=== PATIENT | female | born 2000 | race Caucasian/White ===

== ENCOUNTER 2018-11-08 23:48 | Emergency (ER) | payer OTHER ==
[2018-11-09 02:13] VITALS: BP 114/63
--- NOTE | 2018-11-09 02:18 | ED ---
Substance Abuse/Use - HPI Summary HPI Summary: Patient is a 17-year-old female presenting to the ED via ambulance with boyfriend with EtOH use. With an appetite states they were out drinking when patient began to vomit. He states this is not normal for her and became concerned. He told his friends who were able to call the ambulance. She had approximately 2-3 episodes of emesis and was difficult to arouse. On arrival into the ED, she is easy to arouse and is able to communicate. Denies any drug use on this date. - History Of Current Complaint Chief Complaint: EDSubstanceAbuse Stated Complaint: ETOH Time Seen by Provider: 11/09/18 00:17 Hx Obtained From: Patient ?: No Ingestion History: Type/Name Of Drug - Alcohol Overdose Characteristics: Oral Timing Of Abuse: Binge Use Severity Initially: Moderate Severity Currently: Moderate Aggravating Factor(s): Nothing Alleviating Factor(s): Nothing Associated Signs And Symptoms: Negative - Allergies/Home Medications Allergies/Adverse Reactions: Allergies Allergy/AdvReac Type Severity Reaction Status Date / Time LACTOSE INTOLERANCE Allergy GI Upset Uncoded 03/06/18 14:46 PMH/Surg Hx/FS Hx/Imm Hx Previously Healthy: Yes Endocrine/Hematology History: Denies: Hx Diabetes Cardiovascular History: Denies: Hx Hypertension, Hx Pacemaker/ICD Respiratory History: Reports: Hx Asthma History: Denies: Hx Renal Disease Musculoskeletal History: Reports: Hx Back Problems Sensory History: Denies: Hx Hearing Aid Neurological History: Denies: Other Neuro Impairments/Disorders - PAIN CLINIC PT Psychiatric History: Denies: Hx Panic Disorder - Surgical History Surgery Procedure, Year, and Place: wisdom teeth 2017 - Immunization History Hx Pertussis Vaccination: No Immunizations Up to Date: Yes Infectious Disease History: No Infectious Disease History: Reports: Hx of Known/Suspected MRSA Denies: Traveled Outside the [place] in Last 30 Days - Social History Occupation: Unemployed, Student Lives: Dormitory/Roommates Alcohol Use: Occasionally Hx Substance Use: No Substance Use Type: Reports: None Hx Tobacco Use: No Smoking Status (MU): Never Smoked Tobacco Review of Systems Constitutional: Negative Negative: Fever, Chills, Fatigue, Skin Diaphoresis Negative: Epistaxis, Dental Pain Negative: Palpitations, Chest Pain Negative: Shortness Of Breath, Cough Positive: Vomiting, Nausea Genitourinary: Negative Positive: no symptoms reported, see HPI Negative: Rash, Bruising Neurological: Negative All Other Systems Reviewed And Are Negative: Yes Physical Exam Triage Information Reviewed: Yes Vital Signs On Initial Exam: Initial Vitals Temp Pulse Resp BP Pulse Ox 97.3 F 60 16 112/64 98 11/09/18 00:00 11/09/18 00:00 11/09/18 00:00 11/09/18 00:00 11/09/18 00:00 Vital Signs Reviewed: Yes Appearance: Positive: Well-Appearing, Well-Nourished Skin: Positive: Warm, Skin Color Reflects Adequate Perfusion Head/Face: Positive: Normal Head/Face Inspection Eyes: Positive: EOMI, KEVIN, Conjunctiva Clear Neck: Positive: Supple, No Lymphadenopathy Respiratory/Lung Sounds: Positive: Clear to Auscultation, Breath Sounds Present Cardiovascular: Positive: RRR, Pulses are Symmetrical in both Upper and Lower Extremities Musculoskeletal: Positive: Normal, Strength/ROM Intact Neurological: Positive: Slurred Speech Psychiatric: Positive: Normal, Affect/Mood Appropriate Diagnostics - Vital Signs Vital Signs Temp Pulse Resp BP Pulse Ox 11/09/18 02:00 78 100 11/09/18 01:47 83 114/63 99 11/09/18 01:17 73 111/69 99 11/09/18 01:00 64 98 11/09/18 00:47 63 110/65 99 11/09/18 00:00 97.3 F 60 16 112/64 98 - Laboratory Lab Statement: Any lab studies that have been ordered have been reviewed, and results considered in the medical decision making process. Course/Dx - Course Course Of Treatment: On physical examination, patient is now alert and states she would like to go home. She states she is very fatigued, however denies any nausea or vomiting at this time. Denies any chest pain, shortness of breath, headache or visual changes or disturbances. To her knowledge her boyfriend's knowledge, she had no falls this evening. She is able to take PO well and is ambulating well just prior to discharge. She is diagnosed with alcohol intoxication. She has a safe ride home at this time. - Diagnoses Differential Diagnosis/HQI/PQRI: Positive: Alcohol Abuse Provider Diagnoses: Alcohol intoxication Discharge - Sign-Out/Discharge Documenting (check all that apply): Patient Departure - Discharge Plan Condition: Stable Disposition: HOME Patient Education Materials: Alcohol Intoxication (ED) Referrals: No Primary Care Phys,NOPCP [Primary Care Provider] - Additional Instructions: Drink plenty of fluids Rest - Billing Disposition and Condition Condition: STABLE Disposition: Home
== END 2018-11-09 02:28 | disposition home or self-care (01) ==
LOC: ED 23:48
DX: F10.129 Alcohol abuse with intoxication, unspecified (principal)
CPT/HCPCS: 99282